=== PATIENT | female | born 1955 | race Caucasian/White ===

== ENCOUNTER → 2018-02-27 | Outpatient (CLI) | payer OTHER | END | disposition home or self-care (01) | LOC: RAD 14:22 | DX: M17.11 Unilateral primary osteoarthritis, right knee (principal) ==

== ENCOUNTER 2018-06-22 09:59 | Outpatient (CLI) | payer OTHER | END 2018-06-22 10:12 | disposition home or self-care (01) | LOC: SONOGRAMA 09:59 | DX: N28.1 Cyst of kidney, acquired (principal) ==

== ENCOUNTER 2018-12-09 10:07 | Outpatient (CLI) | payer OTHER | END 2018-12-09 10:38 | disposition home or self-care (01) | LOC: RAD 10:07 | DX: M54.5 Low back pain (principal) ==

== ENCOUNTER 2019-04-04 13:30 | Outpatient (CLI) | payer OTHER | END 2019-04-04 13:52 | disposition home or self-care (01) | LOC: SONOGRAMA 13:30 | DX: N28.1 Cyst of kidney, acquired (principal) ==

== ENCOUNTER 2019-04-30 13:54 | Outpatient (CLI) | payer OTHER | END 2019-04-30 14:36 | disposition home or self-care (01) | LOC: NUCLEAR 13:54 | DX: M81.0 Age-related osteoporosis without current pathological fracture (principal) ==

== ENCOUNTER → 2019-09-20 13:02 | Outpatient (CLI) | payer OTHER | END | disposition home or self-care (01) | LOC: LAB 13:02 → RAD 13:02 | DX: R07.89 Other chest pain (principal) ==

== ENCOUNTER 2020-05-14 15:40 | Outpatient (CLI) | payer OTHER | END 2020-05-14 15:53 | disposition home or self-care (01) | LOC: RAD 15:40 | DX: M17.0 Bilateral primary osteoarthritis of knee (principal); Z96.653 Presence of artificial knee joint, bilateral ==

== ENCOUNTER 2021-01-11 09:16 | Outpatient (CLI) | payer OTHER | END 2021-01-11 09:26 | disposition home or self-care (01) | LOC: MRI 09:16 | PROVIDERS: ATTEND Orthopaedic Surgery Foot and Ankle Surgery | DX: M48.062 Spinal stenosis, lumbar region with neurogenic claudication (principal) | CPT/HCPCS: 72148 ==

== ENCOUNTER 2021-05-13 14:13 | Outpatient (CLI) | payer OTHER | END 2021-05-13 14:14 | disposition home or self-care (01) | LOC: NUCLEAR 14:13 | PROVIDERS: ATTEND Emergency Medicine | DX: M85.80 Other specified disorders of bone density and structure, unspecified site (principal); M81.0 Age-related osteoporosis without current pathological fracture ==

== ENCOUNTER 2021-06-13 08:00 | Outpatient (CLI) | payer OTHER | END 2021-06-13 08:30 | disposition home or self-care (01) | LOC: PPH VACUNA 08:00 | PROVIDERS: ATTEND Emergency Medicine Pediatric Emergency Medicine | DX: Z23 Encounter for immunization (principal) ==

== ENCOUNTER 2021-10-27 09:24 | Outpatient (CLI) | payer OTHER | END 2021-10-27 09:31 | disposition home or self-care (01) | LOC: RAD 09:24 | PROVIDERS: ATTEND Specialist | DX: Z01.811 Encounter for preprocedural respiratory examination (principal) ==

== ENCOUNTER 2021-10-27 09:50 | Outpatient (CLI) | payer OTHER | END 2021-10-27 10:00 | disposition home or self-care (01) | LOC: LAB 09:50 | PROVIDERS: ATTEND Specialist | DX: D68.8 Other specified coagulation defects (principal); E78.89 Other lipoprotein metabolism disorders; R82.79 Other abnormal findings on microbiological examination of urine ==